=== PATIENT | male | born 1970 | race Caucasian/White ===

== ENCOUNTER 2021-10-09 10:58 | Emergency (ER) | payer BC ==
[2021-10-09] MEDS ORDERED: Sodium Chloride 0.9% 10 ML Syringe FLUSH PRN (11:02)
[2021-10-09] MEDS ORDERED: Sodium Chloride 0.9% 2.5 ML Syringe FLUSH PRN (11:02)
[2021-10-09 14:04] LABS: BLOOD UREA NITROGEN,BUN 11 mg/dL (7.0-18.0); CARBON DIOXIDE,CO2 28.8 mmol/L (21.0-32.0); CHLORIDE,CL 103 mmol/L (98-107); GLUCOSE RANDOM 106 mg/dL (74-106); POTASSIUM,K 3.5 mmol/L (3.5-5.1); SODIUM,NA 139 mmol/L (136-148)
== END 2021-10-09 14:24 | disposition home or self-care (01) ==
LOC: MW.ED 10:58
DX: R00.2 Palpitations (principal); I10 Essential (primary) hypertension; E11.9 Type 2 diabetes mellitus without complications; K21.9 Gastro-esophageal reflux disease without esophagitis; E66.9 Obesity, unspecified; Z68.33 Body mass index [BMI] 33.0-33.9, adult; Z79.899 Other long term (current) drug therapy
CPT/HCPCS: 36415; 71045; 71045-26; 80053; 83735; 84484; 85025; 93005; 99285-25

== ENCOUNTER 2023-04-17 07:54 | Day surgery (SDC) | payer BC ==
[~2023-04-17 07:54] MED LIST: Lactated Ringers 1,000 ML IV SCH
[2023-04-17] MEDS ORDERED: Propofol 200 MG/20 ML SDV ONE (09:10)
== END 2023-04-17 10:16 | disposition home or self-care (01) ==
LOC: MW.SDS 07:54
PROVIDERS: ATTEND Surgery
DX: Z12.11 Encounter for screening for malignant neoplasm of colon (principal); K21.9 Gastro-esophageal reflux disease without esophagitis; K57.32 Diverticulitis of large intestine without perforation or abscess without bleeding; K62.1 Rectal polyp; J45.909 Unspecified asthma, uncomplicated; I44.30 Unspecified atrioventricular block; E11.9 Type 2 diabetes mellitus without complications; I10 Essential (primary) hypertension; M43.10 Spondylolisthesis, site unspecified; M19.90 Unspecified osteoarthritis, unspecified site; E66.9 Obesity, unspecified; D72.829 Elevated white blood cell count, unspecified; M10.9 Gout, unspecified; E78.2 Mixed hyperlipidemia; R00.2 Palpitations; M47.16 Other spondylosis with myelopathy, lumbar region; Z80.0 Family history of malignant neoplasm of digestive organs; Z68.31 Body mass index [BMI] 31.0-31.9, adult; F17.210 Nicotine dependence, cigarettes, uncomplicated; K64.8 Other hemorrhoids
CPT/HCPCS: 45380; J2704; J7120; 00811